=== PATIENT | female | born 1990 | race Caucasian/White ===

== ENCOUNTER → 2021-12-24 08:18 | Outpatient (CLI) | payer OTHER, SELFPAY ==
--- NOTE | ~2021-12-24 | MMUS_ITS ---
EXAMINATION: MM diagnostic joanna BI w uma, US breast BI limited HISTORY: Diffuse cystic mastopathy of the breasts, nipple retraction TECHNIQUE: Craniocaudal, mediolateral, and mediolateral oblique 3-D tomosynthesis images of the breas ts were performed and synthetic 2-D images were generated. CAD analysis was submitted and interpreted . High resolution limited bilateral breast ultrasound was performed. COMPARISON: None, baseline BREAST PARENCHYMAL COMPOSITION: There are scattered areas of fibroglandular density. FINDINGS: MAMMOGRAPHIC FINDINGS: There is no suspicious mass, calcification, or architectural distortion in either breast to suggest malignancy. No mammographic correlate is identified for the patient's reported breast pain or nipple retraction. ULTRASOUND: There is no evidence of focal abnormal solid or cystic mass in the vicinity of the patient's breast p ain. IMPRESSION: 1. No specific mammographic or sonographic correlate is identified for the patient's reported breast pain or nipple retraction. Further evaluation at this time should be based on clinical assessment. Co ntinued follow-up physical examination is recommended. BI-RADS Category 1: Negative Reviewed, dictated and finalized at location A. IMPRESSION: 1. No specific mammographic or sonographic correlate is identified for the flores ent's reported breast pain or nipple retraction. Further evaluation at this marcella e should be based on clinical assessment. Continued follow-up physical examinat ion is recommended. BI-RADS Category 1: Negative
== END ==
PROVIDERS: PCP Family Medicine; Visit Provider Family Medicine
DX: N60.11 Diffuse cystic mastopathy of right breast (principal); N60.12 Diffuse cystic mastopathy of left breast; R21 Rash and other nonspecific skin eruption; Q83.9 Congenital malformation of breast, unspecified
CPT/HCPCS: 76642; 77062; 77066; G0279

== ENCOUNTER 2024-12-08 08:39 | Emergency (ER) | payer OTHER, SELFPAY ==
--- NOTE | ~2024-12-08 | CT_ITS ---
EXAMINATION: CT brain wo con DATE: 12/08/2024 09:45 INDICATION: Presyncope. Headache. Dizziness. TECHNIQUE: Computed tomography (CT) of the head was performed without intravenous contrast. The dose- length product was 529.67 mGy-cm. Automated exposure control and iterative reconstruction technique w ere employed. COMPARISON: No prior studies for comparison. FINDINGS: No acute intracranial hemorrhage, infarction, mass or mass effect. No ventriculomegaly or m idline shift. Basilar cisterns are patent. Paranasal sinuses and mastoids are pneumatized. No depress ed skull fractures. IMPRESSION: 1. No acute intracranial abnormality. Reviewed, dictated and finalized at location A.
--- OUTSIDE RECORDS SUMMARY | 2024-12-08 08:42 | XMS_ITS | Clinical Summary ---
Author Organization [facility] Care Team Providers Care Inker And Opaquer Name Role Phone Unavailable Primary Care Provider Unavailabl e Social History Tobacco Use Types Packs/Day Years Used Date Smoking Tobacco: Never Assessed Comments Unknown Sex and Gender Information Value Date Recorded Sex Assigned at Not on file Legal Sex Female 10:39 AM [employer] Gender Identity Not on file Sexual Orientation Not on file Plan of Treatment Health Maintenance Due Date Last Done Comments Hepatitis C Virus (HCV) Screening 1989 TdaP Immunization 1989 Hepatitis B Immunization (1 of 3 - 19+ 3-dose series) 2008 Pap Smear 2010 Cervical Cancer Screening (CCS) 09/23/2019 HPV/Cotest 09/23/2019 SARS-COV-2 Immunization ( season) 2023 03/21/2021, 02/27/2021 Influenza Immunization (#1) 2024 03/01/2018 Respiratory Syncytial Virus (RSV) Immunization (Adult) (1 - 1-dose 75+ series) 2064 Human Papillomavirus (HPV) Immunization Completed 05/08/2019, 01/05/2019, 11/04/2018 Meningococcal Immunization (ACWY) Aged Out No longer eligible b ased on patient's age to complete this topic Pneumococcal Immunization Combined Aged Out No longer eligible b ased on patient's age to complete this topic Rotavirus Immunization Aged Out No lo nger eligible based on patient's age to complete this topic
[2024-12-08 10:32] LABS: Hematocrit 39.4 % (37.0-47.0); Hemoglobin 13.3 g/dL (12.0-15.0); Immature Granulocyte Percent A 0.3 % (0-0.5); Lymphocytes Absolute Auto 2.19 K/mm3 (0.9-3.2); Mean Corpuscular HGB Conc 33.8 g/dl (32-36); Mean Corpuscular Hemoglobin 28.2 pg (26-34); Mean Corpuscular Volume 83.7 fl (80-100); Nucleated Red Blood Cells Absolute Auto 0.000 K/mm3 (0.0-0.012); Nucleated Red Blood Cells Perc 0.0 % (0.0-0.2); Platelet Count Result 295 k/mm3 (150-375); Red Blood Count 4.71 M/mm3 (4.2-5.4); White Blood Count 7.6 K/mm3 (4.5-10.0)
--- NOTE | 2024-12-08 10:35 | ED_ITS ---
HPI - General Adult General Chief complaint: Unspecified Stated complaint: multiple complaints Time Seen by Provider: 12/08/24 08:47 History of Present Illness HPI narrative: This is a 34-year-old female presenting for paresthesias of her hands. Patient says that she has been having pain between her shoulder blades for the last week which has made her very concerned. It is worse with movement she believes that it is MSK pain. Last night while she was brushing her teeth she developed a feeling of overwhelming dread. She thought that she was going to pass out and had tingling in her hands and around her mouth. She told her that she felt like she was going to and she said goodbye to him. Symptoms resolved but this morning she woke up and she has a feeling of paresthesias in both arms. She is denying weakness to any extremity vision changes difficulty speaking swallowing or double vision. She denies any use of drugs or alcohol. She denies any history of anxiety or panic attacks. Patient is a physician-psychiatry. Related Data Allergies Allergy/AdvReac Type Severity Reaction Status Date / Time Cephalosporins Allergy Mild Unknown Verified 12/08/24 09:35 Exam 2 Narrative: APPEARANCE: No apparent distress. Head: atraumatic. EYES: EOMI, NOSE: Atraumatic NECK: Trachea midline RESPIRATORY: No increased rate of breathing clear to auscultation CARDIOVASCULAR: RRR, no peripheral edema ABDOMINAL: Non-distended MUSCULOSKELETAl: No obvious deformities NEURO: Alert. Cranial nerves 2-12 grossly intact. Sensation light touch, motor function cerebellar function intact for 4 extremities. Gait exam was normal. SKIN:: Warm, dry. Normal color PSYCHIATRIC: Normal affect Medical Decision Making [facility] Narrative Medical decision making narrative: -Course: 34-year-old female presenting with an episode of presyncope associated with perioral tingling, hand tingling and overwhelming dread. Her neurologic exam is normal. Her vital signs are stable and she is well-appearing. Those symptoms resolved but she is still experiencing bilateral paresthesias in the upper extremities. These symptoms were discussed with her at length. Her CT brain was normal. Her labs are unremarkable. She will be given follow-up with Neurology for further evaluation of her paresthesias. Patient declined to provide urine for UA or test. -DDX includes but is not limited to: Panic attack/anxiety/peripheral neuropathy/cervical radiculopathy/CVA Lab Data 12/08/24 10:25 12/08/24 10:25 Labs: Lab Results 12/08/24 Range/Units 10:25 WBC 7.6 (4.5-10.0) K/mm3 RBC 4.71 (4.2-5.4) M/mm3 Hgb 13.3 (12.0-15.0) g/dL Hct 39.4 (37.0-47.0) % MCV 83.7 (80-100) fl MCH 28.2 (26-34) pg MCHC 33.8 (32-36) g/dl RDW 12.4 (11.5-14.5) % Plt Count 295 (150-375) k/mm3 MPV 9.1 (7.4-10.4) fl Immature Gran % (Auto) 0.3 (0-0.5) % Neut % (Auto) 64.6 (45.5-73.1) % Lymph % (Auto) 28.9 (18.3-44.2) % [place] % (Auto) 4.6 (2.6-8.5) % Eos % (Auto) 1.3 (0-4.4) % Baso % (Auto) 0.3 (0.2-1.2) % Lymph # (Auto) 2.19 (0.9-3.2) K/mm3 [place] # (Auto) 0.4 (0.1-0.6) K/mm3 Eos # (Auto) 0.1 (0-0.3) K/mm3 Baso # (Auto) 0.0 (0.0-0.1) K/mm3 Abs Immat Gran (auto) 0.02 (0.00-0.031) K/mm3 Absolute Neuts (auto) 4.9 (1.3-6.7) K/mm3 Absolute Nucleated RBC 0.000 (0.0-0.012) K/mm3 Nucleated RBC % 0.0 (0.0-0.2) % Sodium Pending Potassium Pending Chloride Pending Carbon Dioxide Pending Anion Gap Pending BUN Pending Creatinine Pending Estim Creat Clear Calc Pending Estimated GFR Pending Glucose Pending Calcium Pending Total Bilirubin Pending AST Pending ALT Pending Alkaline Phosphatase Pending Total Protein Pending Albumin Pending Discharge Plan Discharge Clinical Impression: Hand paresthesia Patient Disposition: Home Condition: Stable Instructions: Antibiotic Form, Paresthesia (ED) Additional Instructions: He was seen emergency department for tingling in her hands. Your CT brain was unremarkable. Her laboratory studies are within normal limits. Please follow- up with the neurologist listed below for further management of your paresthesias. If you develop any new symptoms such as double vision, slurred speech, difficulty speaking or weakness to any extremity please return to ED for re-evaluation. Patient Language: [place]ian Follow-up/Referrals: Ebony Ta MD [Physician] - 1 Week (Bilateral parasthesias ) John,DO Annia [Primary Care Provider] -
[2024-12-08 10:55] LABS: Alanine Aminotransferase 25 U/L (6-35); Albumin Level 4.2 g/dL (3.5-5.1); Alkaline Phosphatase 78 U/L (38-126); Anion Gap 9 mmol/L (4-12); Aspartate Amino Transferase 28 U/L (14-36); Bilirubin,Total 1.1 mg/dL (0.2-1.3); Blood Urea Nitrogen 11 mg/dL (7-17); Calcium 9.1 mg/dL (8.4-10.2); Carbon Dioxide 27 mmol/L (22-30); Chloride 101 mmol/L (98-107); Estimated Glomerular Filt Rate > 60; Glucose 98 mg/dL (65-110); Potassium 4.1 mmol/L (3.4-5.0); Sodium 137 mmol/L (137-145); Total Protein 7.9 g/dL (6.3-8.2)
== END 2024-12-08 11:24 | disposition home or self-care (01) ==
PROVIDERS: Emergency Provider Emergency Medicine; PCP Family Medicine
DX: R20.2 Paresthesia of skin (principal)
CPT/HCPCS: 36415; 70450; 80053; 85025; 99284

== ENCOUNTER 2025-03-02 12:38 | Outpatient (CLI) | payer OTHER, SELFPAY ==
--- NOTE | ~2025-03-02 | US_ITS ---
EXAMINATION: US pelvic complete w TV DATE: 03/02/2025 13:08 INDICATION: Vaginal spotting TECHNIQUE: Multiple transabdominal and endovaginal sonographic images of the pelvis were obtained. COMPARISON: None. FINDINGS: The uterus measures 7.4 x 3.9 x 3.3 cm. The endometrial complex measures 12 mm in thickness. 9 mm anechoic nabothian cyst at the cervix. The left ovary measures 3.5 x 3.1 x 2.8 cm. The right ovary measures 2.6 x 2.3 x 2.2 cm. Bilateral anechoic ovarian cysts/follicles measuring 2.5 similar on the left and 2.0 cm on the right. Pressure flow identified in both ovaries on color Doppler. There is no free fluid in the pelvis. IMPRESSION: 1. Unremarkable pelvic ultrasound. Reviewed, dictated and finalized at location A. ET PATCHER
== END 2025-03-02 12:39 | disposition home or self-care (01) ==
PROVIDERS: PCP Family Medicine; Visit Provider Family Medicine
DX: B00.9 Herpesviral infection, unspecified (principal); N93.9 Abnormal uterine and vaginal bleeding, unspecified
CPT/HCPCS: 76830; 76856

== ENCOUNTER 2025-04-24 10:34 | Outpatient (CLI) | payer OTHER, SELFPAY ==
--- NOTE | ~2025-04-24 | US_ITS ---
US thyroid INDICATION: Problems swallowing. TECHNIQUE: Real-time sonographic images of the thyroid gland were obtained. COMPARISON: No prior studies for comparison. FINDINGS: The right thyroid lobe measures 4.5 x 1.4 x 1.2 cm. The left thyroid lobe measures 4.2 x 1.2 x 1.3 cm. There is normal echotexture and echogenicity throughout the thyroid gland. No discrete nodules identified. Normal vascular flow is present. IMPRESSION: 1. Normal thyroid without discrete nodule or abnormal vascularity. Reviewed, dictated and finalized at location O. PHONER
== END 2025-04-24 10:35 | disposition home or self-care (01) ==
LOC: MICIMG 10:34
PROVIDERS: PCP Family Medicine; Visit Provider Family Medicine
DX: E78.00 Pure hypercholesterolemia, unspecified (principal); R13.10 Dysphagia, unspecified; E28.2 Polycystic ovarian syndrome; Z83.49 Family history of other endocrine, nutritional and metabolic diseases
CPT/HCPCS: 76536